=== PATIENT | female | born 1985 | race Asian ===

== ENCOUNTER 2017-09-07 08:20 | Inpatient (IN) | payer OTHER ==
[~2017-09-07] VITALS: Ht 157.5 cm; Wt 61.2 kg
[2017-09-07] MEDS ORDERED: OXYTOCIN 20 UNITS in LACTATED RINGERS 1,000 ML IV SCH (09:30)
[2017-09-07 10:01] VITALS: BP 122/82
[2017-09-07] MEDS ORDERED: ROPIVACAINE 0.2%/NS PREMIX 250 ML EPI ONE ×2 (10:32→16:42)
[2017-09-07] MEDS ORDERED: OXYTOCIN 10 UNITS/ML VIAL IM SCH (11:25)
[2017-09-07 11:40] LABS: BASOPHILS # (AUTO) 0.1 K/uL (0.00-0.22); BASOPHILS % (AUTO) 1.8 % (0.0-2.0); EOSINOPHILS % (AUTO) 0.3 % (0.0-4.0); HEMATOCRIT 37.8 % (36-48); HEMOGLOBIN 12.3 g/dL (12.0-16.0); LYMPHOCYTES # (AUTO) 1.5 K/uL (2.5-16.5); LYMPHOCYTES % (AUTO) 18.3 % (20.5-51.1); MEAN CORPUSCULAR HEMOGLOBIN 30 pg (27-31); MEAN CORPUSCULAR HGB CONC 33 g/dL (33-37); MEAN CORPUSCULAR VOLUME 91 fL (80-94); MONOCYTES # (AUTO) 0.5 K/uL (0.8-1.0); NEUTROPHILS % (AUTO) 73.6 % (42.2-75.2); PLATELET COUNT (AUTO) 171 K/uL (140-450); RED BLOOD CELL COUNT(AUTO) 4.16 MIL/uL (4.20-5.40); RED CELL DISTRIBUTION WIDTH 16.7 % (11.6-13.7); WHITE BLOOD COUNT (AUTO) 8.1 K/uL (4.8-10.8)
[2017-09-07 11:42] LABS: APPEARANCE,URINE HAZY (CLEAR); BILIRUBIN,URINE NEGATIVE (NEGATIVE); BLOOD, URINE 3+ (NEGATIVE); COLOR,URINE YELLOW (YELLOW); LEUKOCYTE ESTERASE ,URINE NEGATIVE (NEGATIVE); NITRITE, URINE NEGATIVE (NEGATIVE); PH,URINE 6.5 (5.0-9.0); UGLUCOSE TRACE (NEGATIVE)
[2017-09-07 11:53] LABS: RBC,URINE 3-10 (FEW) /HPF (0-5); WBC,URINE 0-5 (RARE) /HPF (0-5)
[2017-09-07] MEDS ORDERED: PREN-380 PO (15:52)
[2017-09-07] MEDS ORDERED: FERR-212 PO (15:53)
[2017-09-07] MEDS: LACTATED RINGERS 1,000 ML IV SCH ×3 (20:18→23:28)
[2017-09-07] MEDS ORDERED: AMPICILLIN 2,000 MG in NACL 0.9% 100 ML IV SCH (21:15)
[2017-09-07] MEDS ORDERED: AMPICILLIN 2,000 MG VIAL ONE (21:25)
[2017-09-07] MEDS ORDERED: TERBUTALINE 1 MG/ML VIAL SUBQ SCH (21:30)
[2017-09-07] MEDS ORDERED: TERBUTALINE 1 MG/ML VIAL SUBQ ONE (21:32)
[2017-09-07] MEDS ORDERED: ACETAMINOPHEN 650 MG SUPP RC PRN (21:50)
[2017-09-07] MEDS ORDERED: ACETAMINOPHEN 650 MG SUPP RC ONE (22:06)
[2017-09-07] MEDS ORDERED: CITRIC ACID/SODIUM CITRATE 30 ML UDC PO SCH (22:25)
[2017-09-07] MEDS ORDERED: ceFAZolin 1,000 MG VIAL ONE (22:51)
[2017-09-07] MEDS ORDERED: CITRIC ACID/SODIUM CITRATE 30 ML UDC ONE (23:03)
[2017-09-07] MEDS ORDERED: SUCCINYLCHOLINE CHLORIDE 200 MG/10 ML VIAL IV ONE (23:40)
[2017-09-07] MEDS ORDERED: VECURONIUM 10 MG VIAL IV ONE (23:40)
[2017-09-07] MEDS ORDERED: VECURONIUM 10 MG VIAL IVP ONE (23:40)
[2017-09-07] MEDS ORDERED: PROPOFOL 200 MG/20 ML VIAL IV ONE ×2 (23:40)
[2017-09-07] MEDS ORDERED: DESFLURANE 240 ML BTL INH ONE ×2 (23:40)
[2017-09-07] MEDS ORDERED: ONDANSETRON 4 MG/2 ML VIAL IVP ONE (23:40)
[2017-09-07] MEDS ORDERED: NEOSTIGMINE 1:1000 10 MG/10 ML VIAL ONE (23:40)
[2017-09-07] MEDS ORDERED: ONDANSETRON 4 MG/2 ML VIAL ONE (23:40)
[2017-09-07] MEDS ORDERED: GLYCOPYRROLATE 0.2 MG/ML VIAL ONE (23:40)
[2017-09-07] MEDS ORDERED: SUCCINYLCHOLINE CHLORIDE 200 MG/10 ML VIAL IVP ONE (23:40)
[2017-09-07] MEDS ORDERED: GLYCOPYRROLATE 0.2 MG/ML VIAL IV ONE (23:40)
[2017-09-07] MEDS ORDERED: PHENYLEPHRINE 10 MG/ML VIAL IV ONE (23:40)
[2017-09-07] MEDS ORDERED: MORPHINE PRES FREE 10 MG/10 ML AMP IV ONE (23:45)
[2017-09-07] MEDS ORDERED: ceFAZolin 1,000 MG VIAL IVP ONE (23:45)
[2017-09-08] MEDS ORDERED: AMPICILLIN 1,000 MG in NACL 0.9% 50 ML IV SCH ×2
[2017-09-08] MEDS ORDERED: LIDOCAINE 1% 50 ML ONE ×2 (00:02→00:07)
[2017-09-08] MEDS ORDERED: ONDANSETRON 4 MG/2 ML VIAL IVP PRN (00:10)
[2017-09-08] MEDS ORDERED: HYDROmorphone PFS 2 MG/ML SYR IVP PRN (00:10)
[2017-09-08] MEDS ORDERED: OXYTOCIN 10 UNITS/ML VIAL ONE ×2 (00:23→07:57)
[2017-09-08] MEDS ORDERED: HYDROmorphone PFS 2 MG/ML SYR ONE ×2 (00:24→02:14)
[2017-09-08] MEDS ORDERED: CARBOPROST 250 MCG/ML AMP IM ONE (00:26)
[2017-09-08] MEDS: LACTATED RINGERS 1,000 ML IV SCH (00:34)
[2017-09-08] MEDS ORDERED: MEASLES, MUMPS, AND RUBELLA 1 VIAL SQVAC PRN (02:25)
[2017-09-08] MEDS ORDERED: IBUPROFEN 600 MG TAB PO PRN (02:25)
[2017-09-08] MEDS: KETOROLAC 30 MG/ML VIAL IVP PRN ×3 (05:13→20:02)
[2017-09-08] MEDS: OXYTOCIN 20 UNITS in LACTATED RINGERS 1,000 ML IV SCH ×3 (07:58→23:47)
[2017-09-08] MEDS: HYDROmorphone PFS 2 MG/ML SYR IVP PRN ×3 (08:25→23:31)
--- NOTE | 2017-09-08 08:57 | NUR ---
PATIENT HAS BEEN SCREENED AND CATEGORIZED LOW NUTRITION RISK. PATIENT WILL BE SEEN WITHIN 7 DAYS OF ADMISSION. 09/14/2017 ANNIA LACEY MBA, RD
[2017-09-08] MEDS ORDERED: OXYTOCIN 20 UNITS in LACTATED RINGERS 1,000 ML IV SCH (09:30)
[2017-09-08 10:33] LABS: BASOPHILS # (AUTO) 0.1 K/uL (0.00-0.22); BASOPHILS % (AUTO) 0.4 % (0.0-2.0); EOSINOPHILS # (AUTO) 0.1 K/uL (0-0.4); EOSINOPHILS % (AUTO) 0.7 % (0.0-4.0); HEMATOCRIT 25.4 % (36-48); HEMOGLOBIN 8.5 g/dL (12.0-16.0); LYMPHOCYTES % (AUTO) 7.7 % (20.5-51.1); MEAN CORPUSCULAR HEMOGLOBIN 30 pg (27-31); MEAN CORPUSCULAR HGB CONC 34 g/dL (33-37); MEAN CORPUSCULAR VOLUME 90 fL (80-94); MONOCYTES # (AUTO) 0.7 K/uL (0.8-1.0); MONOCYTES % (AUTO) 5.3 % (1.7-9.3); NEUTROPHILS # (AUTO) 11.1 K/uL (1.8-7.7); NEUTROPHILS % (AUTO) 85.9 % (42.2-75.2); PLATELET COUNT (AUTO) 138 K/uL (140-450); RED BLOOD CELL COUNT(AUTO) 2.82 MIL/uL (4.20-5.40); RED CELL DISTRIBUTION WIDTH 16.9 % (11.6-13.7)
[2017-09-08] MEDS ORDERED: OXYTOCIN 20 UNITS/LR PREMIX 1,000 ML IV ONE (23:51)
[2017-09-09] MEDS ORDERED: diphenhydrAMINE 50 MG/ML VIAL IM SCH (00:20)
[2017-09-09] MEDS: KETOROLAC 30 MG/ML VIAL IVP PRN ×2 (06:46→13:24)
[2017-09-09] MEDS ORDERED: LACTATED RINGERS 1,000 ML IV SCH (09:00)
[2017-09-09] MEDS ORDERED: SODIUM PHOSPHATE 118 ML ENEM RC PRN (21:25)
[2017-09-09] MEDS ORDERED: SIMETHICONE 80 MG TAB.CHEW PO PRN (21:25)
[2017-09-10] MEDS: IBUPROFEN 600 MG TAB PO PRN ×2 (03:21→11:25)
[2017-09-10] MEDS ORDERED: SODIUM PHOSPHATE 118 ML ENEM RC PRN (08:00)
[2017-09-10] MEDS ORDERED: DOCUSATE SODIUM 100 MG GELCAP PO PRN (08:00)
[2017-09-10] MEDS ORDERED: oxyCODONE/APAP 5/325 MG 1 TAB TAB PO PRN (08:00)
[2017-09-10] MEDS ORDERED: SIMETHICONE 80 MG TAB.CHEW PO PRN (08:00)
[2017-09-10] MEDS ORDERED: BISACODYL 5 MG TABEC PO PRN (08:00)
[2017-09-10] MEDS: DOCUSATE SODIUM 100 MG GELCAP PO PRN ×2 (11:24)
[2017-09-10] MEDS: BISACODYL 5 MG TABEC PO PRN ×2 (19:53)
[2017-09-11] MEDS: oxyCODONE/APAP 5/325 MG 1 TAB TAB PO PRN ×2 (08:52→14:44)
[2017-09-11] MEDS: DOCUSATE SODIUM 100 MG GELCAP PO PRN (08:52)
== END 2017-09-11 18:15 | disposition home or self-care (01) | DRG 766 ==
LOC: MLD 08:20 → MFCC 09-08 02:40
PROVIDERS: ADMIT Obstetrics & Gynecology; ATTEND Obstetrics & Gynecology
PROC: 10D00Z1 Extraction of Products of Conception, Low, Open Approach (ICD-10-PCS; principal; 2017-09-11)
DX: O76 Abnormality in fetal heart rate and rhythm complicating labor and delivery (principal); D25.9 Leiomyoma of uterus, unspecified; O41.00X0 Oligohydramnios, unspecified trimester, not applicable or unspecified; O77.0 Labor and delivery complicated by meconium in amniotic fluid; Z37.0 Single live birth; O34.13 Maternal care for benign tumor of corpus uteri, third trimester; Z3A.39 39 weeks gestation of pregnancy; O62.1 Secondary uterine inertia
CPT/HCPCS: 36415; 51702; 81001; 85025; 86592; 86886; 86900; 86901; 87086; 87340; J0290; J0330; J0690; J1170; J1885; J2001; J2270; J2370; J2405; J2590; J2704; J2710; J2795; J3105; J3490; J7060; J7120